=== PATIENT | male | born 1965 | race Caucasian/White ===

== ENCOUNTER 2017-04-03 19:19 | Inpatient (IN) | payer OTHER ==
--- NOTE | ~2017-04-03 | DS ---
Discharge Summary [facility] [address] [place]. [address] NAME: SINDHU SEARS : 65 STATUS : DIS IN PAT#: [id number] AGE: 52 ADM/REG DATE : 04/03/17 MR#: [id number] REPORT SERV DATE: 04/16/17 DICTATED BY: DAIN BRAGG DATE: 04/16/17 REPORT STATUS : Draft TRANSCRIBED BY: SONG DATE: 04/16/17 ADMISSION DATE: 04/03/2017 DISCHARGE DATE: 04/07/2017 DISCHARGE DIAGNOSES: 1. Acute respiratory, resolved. 2. Chronic obstructive pulmonary disease, acute exacerbation. 3. Hypertension. IMAGING: Chest x-ray, 04/03/2017: Impression, appropriate positioning of ET tube and enteric tube. COURSE IN THE HOSPITAL STAY: Please refer to history and physical dictated by Dr. Lerner on 04/03/2017 for complete admission details. This patient is a 52-year-old gentleman who presented to [facility] Emergency Room from [facility], who was found in hypercapnic. The patient does present with a history of COPD. At the time of admission, no family member was present. The patient was a transfer from [facility] through the emergency room at [facility], proceeded on to ICU. The patient was placed on a first set drip as well as Solu-Medrol, Rocephin, and DuoNebs. Over the next 48 hours, the patient did stabilize, was able to transfer to floor on room air. The patient was discharged home with Levaquin and prednisone. He would follow up with his primary care. Please review the ICU notes for details during admission to ICU. textile conversion manager was involved in the patient's discharge. Medications were provided for the patient. The patient did state that he had a nebulizer at home. Prescriptions were provided. The patient was to follow up with his primary care in five to seven days, which he stated understanding. The patient was discharged home in hemodynamically stable condition. This discharge took less than 30 minutes. DICTATED BY: Dain Bragg NP [facility] Dain Bragg NP / [id number] CC: Discharge Summary [place] [address] [place] [address] NAME: SINDHU SEARS : 65 STATUS : DIS IN PAT#: [id number] AGE: 52 ADM/REG DATE : 04/03/17 MR#: [id number] REPORT SERV DATE: 04/16/17 DICTATED BY: DAIN BRAGG DATE: 04/16/17 REPORT STATUS : Draft TRANSCRIBED BY: MODL DATE: 04/16/17 MD Ester Mcdonald MD
--- NOTE | ~2017-04-03 | HP ---
History And Physical [place] [id number] [facility] [place] [place]. [address] NAME: SINDHU AYALA : 65 STATUS : ADM IN [facility]#: [id number] AGE: 52 ADM/REG DATE : 04/03/17 MR#: [id number] REPORT SERV DATE: 04/04/17 DICTATED BY: JELENA LERNER DATE: 04/03/17 REPORT STATUS : Draft TRANSCRIBED BY: MODL DATE: 04/03/17 DATE OF ADMISSION: 04/03/2017 REASON FOR ADMISSION: COPD exacerbation with acute hypercapnic respiratory failure. CHIEF COMPLAINT: Unable to obtain due to the patient's current medical status. ADMISSION DIAGNOSIS: COPD exacerbation with acute hypercapnic respiratory failure. HISTORY OF PRESENT ILLNESS: Mr. Ayala is a 52-year-old gentleman who presented to [facility] from [facility] for being found hypercapnic. Upon discussion with the outside hospital ER, the patient's initial pH on blood gas was 7.0+. He was hypercapnic and continued to get worse and shortness of breath clinically and required intubation. There is no family currently at the bedside nor has the outside hospital been able to get a hold of family. Currently, the patient's employer is trying get a hold of family. Per nursing record, the patient was seen last week for an acute exacerbation of COPD, but left from the outside hospital against medical advice and then re-presented in this state that he currently is in. The patient transferred from [facility] and was intubated, however, he had no sedation, but was paralyzed with rocuronium. Upon discussion with the staff at [facility] prior to discharge, there was no Precedex available and sedation modality was discussed to give this patient a fentanyl drip with as-needed Versed. However, I see these orders were written, but I do not see that the patient came in on any of these drips. Midazolam was ordered at 1711 hours, fentanyl was also ordered at 1655 hours, but so was rocuronium. It seems that the patient got several doses of midazolam from what I could tell along with Solu Medrol and Rocephin along with DuoNebs. He was then sent for transfer. At the outside hospital, chest x-ray showed evidence of COPD, but no pneumonia. Initial vital signs showed that the patient's blood pressure was 120/80, heart rate of 93, respiratory rate 32, with an oxygen saturation of 88% on 15 L. Otherwise, no further history. PAST MEDICAL HISTORY: COPD. HOME MEDICATION: Currently, I do not have a home medication list, but according to the outside hospital, the patient is on atenolol 100 mg twice daily, benazepril 20 mg once daily, albuterol. ALLERGIES: ACCORDING TO THE OUTSIDE CHART, NO KNOWN DRUG ALLERGIES. SOCIAL HISTORY: Per record, the patient is employed, unclear of his family situation. The patient does smoke, drinks on the weekends. FAMILY HISTORY: According to outside records, the patient has a paternal history of COPD. REVIEW OF SYSTEMS: Unable to obtain due to the patient's current medical status. PHYSICAL EXAMINATION: History And Physical [address] [address] NAME: SINDHU AYALA : 65 STATUS : ADM IN [facility]#: [id number] AGE: 52 ADM/REG DATE : 04/03/17 MR#: [id number] REPORT SERV DATE: 04/04/17 DICTATED BY: JELENA LERNER DATE: 04/03/17 REPORT STATUS : Draft TRANSCRIBED BY: SONG DATE: 04/03/17 VITAL SIGNS: Current vital signs on admission to [facility] shows a heart rate of around 93, oxygen saturation 100%, respiratory rate of 50 with a blood pressure of 220. After receiving sedation, the patient's heart rate and blood pressure along with respiratory has improved. GENERAL: The patient is intubated, is having fasciculations, most likely from the rocuronium. HEENT: PERRLA. NECK: Supple. No JVD. No cervical lymphadenopathy. PULMONARY: No wheezing, mechanical breath sounds. No crackles. CARDIAC: Regular rate. No murmurs. ABDOMEN: Soft, nontender, nondistended. EXTREMITIES: No cyanosis. Peripheral pulses noted. No lower extremity edema. LABORATORY EXAMINATION: The patient does have an elevated white blood cell count at 16. X-ray: Outside hospital x-ray shows findings of COPD. ASSESSMENT AND PLAN: Mr. Ayala is a 52-year-old gentleman with a past medical history noted above, who presents with acute hypoxic and hypercapnic respiratory failure in the setting of chronic obstructive pulmonary disease exacerbation. 1. Acute hypoxic and hypercapnic respiratory failure: At this moment in time, we will continue mechanical ventilation, adjust ventilator strategy and start the patient on Solu-Medrol, DuoNebs, Brovana, and Pulmicort. Continue Rocephin and azithromycin. Obtain sputum culture and wean as tolerated. We will hopefully have family contact us soon for further history. Other consideration is acute pulmonary embolism. If the patient fails to improve from my hypoxia standpoint, may need to have further imaging into this possibility. 2. Chronic obstructive pulmonary disease: The patient is on albuterol at home, it may be worthwhile having this patient obtain a pulmonary function test after this hospitalization for baseline. Furthermore, to have this level of hypercapnia at such a young age, shall have follow up with alpha-1 antitrypsin. We will be evaluating the chest x-ray looking for emphysema. The patient may benefit from a Pulmonary consultation after this clinic visit. 3. Hypertension: We will continue to monitor, at this moment in time, we will hold off on the patient's home beta robbin and LULU inhibitor. 4. Diet: At this moment in time, we will start tube feeds. 5. Prophylaxis: We will give gastrointestinal and deep venous thrombosis prophylaxis. 6. Critical care time: 45 minutes. This is excluding any procedures. HFQ/MODL Jelena Lerner MD / [id number] History And Physical [address] [address] NAME: ORIONSINDHU D : 65 STATUS : ADM IN [facility]#: [id number] AGE: 52 ADM/REG DATE : 04/03/17 MR#: [id number] REPORT SERV DATE: 04/04/17 DICTATED BY: JELENA LERNER DATE: 04/03/17 REPORT STATUS : Draft TRANSCRIBED BY: MODL DATE: 04/03/17 CC: MD ABIDA Mcdonald [facility]
[2017-04-03 21:10] LABS: ALLENS TEST Pos; BE (BASE EXCESS) -4.6 MEQ/L (0 +/- 2.5); CARBOXYHEMOGLOBIN 0.3 % (0-3); HCO3 (ACTUAL BICARBONATE) 24.2 MEQ/L (23-27); HEMOBLOGIN CONTENT 17.1 G/DL (14-18); INSTRUMENT SERIAL # 35151; METHEMOGLOBIN 0.7 % (0-3); MODE CMV; O2 CONTENT 24.2 VOL% (18-24); OPERATOR ID 13861; PCO2 (CO2 TENSION) 60 MMHG (35-45); PO2 (O2 TENSION) 251 MMHG (79-93); SAMPLE Arterial; TIDAL VOLUME 600 ML; pH 7.23 (7.37-7.43)
[2017-04-03 22:44] LABS: BASOPHILS 0.1 %; BASOPHILS ABSOLUTE 0.01 10/3/uL (0.0-0.16); EOSINOPHILS 0.1 %; EOSINOPHILS ABSOLUTE 0.01 10/3/uL (0.0-0.53); HEMATOCRIT 44.1 % (40.0-51.0); HEMOGLOBIN 15.3 g/dL (13.6-17.8); IMMATURE GRANULOCYTES 0.2 %; IMMATURE GRANULOCYTES ABSOLUTE 0.02 10/3/uL (0.0-0.11); LYMPHOCYTES 2.8 %; LYMPHOCYTES ABSOLUTE 0.27 10/3/uL (0.67-4.30); MEAN CORPUS HGB CONC 34.7 g/dL (32.0-36.0); MEAN CORPUSCULAR HEMOGLOB 35.2 pg (26.0-34.0); MEAN CORPUSCULAR VOLUME 101.4 fL (80-100); MEAN PLATELET VOLUME 10.5 fL (9.2-13.0); MONOCYTES 0.7 %; MONOCYTES ABSOLUTE 0.07 10/3/uL (0.21-1.20); NEUTROPHILS 96.1 %; PLATELET COUNT 179 10/3/uL (150-400); RBC DISTRIBUTION WIDTH 12.8 % (12.0-16.0); RED CELL COUNT 4.35 10/6/uL (4.7-6.1); WHITE BLOOD CELLS 9.5 10/3/uL (4.5-10.5)
[2017-04-03 22:47] LABS: MANUAL DIFF NO %
[2017-04-03 23:04] LABS: ALKALINE PHOSPHATASE 62 U/L (45-117); BUN (BLOOD UREA NITROGEN) 15 MG/DL (6-23); CHLORIDE, SERUM 108 MMOL/L (96-112); CK-MB 5.4 NG/ML; CO2 (CARBON DIOXIDE) 24 MMOL/L (24-34); CPK 97 U/L (0-200); CREATININE 1.24 MG/DL (0.70-1.30); GFR AFRICAN AMERICAN 77 ML/MIN (>=60); GFR NON AFRICAN AMERICAN 66 ML/MIN (>=60); GLOBULIN 2.9 G/DL (2.5-4.1); GLUCOSE, SERUM 130 MG/DL (60-99); PHOSPHORUS, SERUM 4.5 MG/DL (2.5-4.5); POTASSIUM, SERUM 4.5 MMOL/L (3.5-5.3); SGOT(AST) 21 U/L (5-40); SGPT(ALT) 28 U/L (5-65); SODIUM, SERUM 140 MMOL/L (135-148); TOTAL BILIRUBIN 1.9 MG/DL (0-1.2); TOTAL PROTEIN 5.9 G/DL (6.0-8.5)
[2017-04-03 23:05] LABS: CKMB INDEX (NOT ORD) 5.6
[2017-04-03 23:07] LABS: TROPONIN I 0.18 NG/ML (<0.05)
[2017-04-03 23:40] LABS: AMPHETAMINES (NOT ORD) NEG (NEG); BARBITURATES (NOT ORDERED NEG (NEG); BENZODIAZEPINES (NOT ORD) POS (NEG); CANNABINOIDS (THC) NEG (NEG); COCAINE (NOT ORDERED) NEG (NEG); OPIATES NEG (NEG); PHENCYCLIDINE(PCP) NEG (NEG); TRICYCLICS NEG (NEG)
[2017-04-04 00:02] LABS: ALLENS TEST Pos; BE (BASE EXCESS) -5.2 MEQ/L (0 +/- 2.5); CARBOXYHEMOGLOBIN 0.6 % (0-3); HCO3 (ACTUAL BICARBONATE) 18.9 MEQ/L (23-27); HEMOBLOGIN CONTENT 16.4 G/DL (14-18); INSTRUMENT SERIAL # 35151; METHEMOGLOBIN 0.7 % (0-3); MODE CMV; O2 CONTENT 22.9 VOL% (18-24); OPERATOR ID 13861; PCO2 (CO2 TENSION) 33 MMHG (35-45); PO2 (O2 TENSION) 177 MMHG (79-93); SAMPLE Arterial; TIDAL VOLUME 600 ML; pH 7.37 (7.37-7.43)
[2017-04-04 05:49] LABS: BASOPHILS 0.1 %; BASOPHILS ABSOLUTE 0.01 10/3/uL (0.0-0.16); EOSINOPHILS 0.1 %; EOSINOPHILS ABSOLUTE 0.01 10/3/uL (0.0-0.53); HEMATOCRIT 46.8 % (40.0-51.0); IMMATURE GRANULOCYTES 0.1 %; IMMATURE GRANULOCYTES ABSOLUTE 0.01 10/3/uL (0.0-0.11); LYMPHOCYTES 7.9 %; LYMPHOCYTES ABSOLUTE 0.64 10/3/uL (0.67-4.30); MEAN CORPUS HGB CONC 34.2 g/dL (32.0-36.0); MEAN CORPUSCULAR HEMOGLOB 34.9 pg (26.0-34.0); MEAN PLATELET VOLUME 10.6 fL (9.2-13.0); MONOCYTES 2.2 %; MONOCYTES ABSOLUTE 0.18 10/3/uL (0.21-1.20); NEUTROPHILS 89.6 %; NEUTROPHILS ABSOLUTE 7.28 10/3/uL (2.02-8.40); PLATELET COUNT 173 10/3/uL (150-400); RBC DISTRIBUTION WIDTH 12.8 % (12.0-16.0); RED CELL COUNT 4.59 10/6/uL (4.7-6.1); WHITE BLOOD CELLS 8.1 10/3/uL (4.5-10.5)
[2017-04-04 05:52] LABS: MANUAL DIFF NO %
[2017-04-04 06:01] LABS: BUN (BLOOD UREA NITROGEN) 16 MG/DL (6-23); CALCIUM, SERUM 8.2 MG/DL (8.5-10.4); CHLORIDE, SERUM 109 MMOL/L (96-112); CO2 (CARBON DIOXIDE) 21 MMOL/L (24-34); CREATININE 1.19 MG/DL (0.70-1.30); GFR AFRICAN AMERICAN 81 ML/MIN (>=60); GFR NON AFRICAN AMERICAN 70 ML/MIN (>=60); GLUCOSE, SERUM 116 MG/DL (60-99); POTASSIUM, SERUM 4.4 MMOL/L (3.5-5.3); SODIUM, SERUM 140 MMOL/L (135-148)
[2017-04-04 06:49] LABS: TROPONIN I 0.22 NG/ML (<0.05)
[2017-04-04 08:48] LABS: ALLENS TEST Pos; BE (BASE EXCESS) -3.7 MEQ/L (0 +/- 2.5); CARBOXYHEMOGLOBIN 0.7 % (0-3); INSTRUMENT SERIAL # 35151; METHEMOGLOBIN 0.6 % (0-3); O2 CONTENT 21.7 VOL% (18-24); PCO2 (CO2 TENSION) 37 MMHG (35-45); PO2 (O2 TENSION) 95 MMHG (79-93); SAMPLE Arterial; pH 7.37 (7.37-7.43)
[2017-04-04] MEDS ORDERED: ATEN50 PO (11:16)
[2017-04-04] MEDS ORDERED: LOTE40 PO (11:16)
[2017-04-04] MEDS ORDERED: PROVHFA INH (11:18)
[2017-04-04] MEDS ORDERED: ALBUTEROL0.083 % INH (11:18)
[2017-04-04] MEDS ORDERED: NORV5 PO (11:23)
[2017-04-05 03:38] LABS: BASOPHILS 0 %; EOSINOPHILS 0 %; HEMOGLOBIN 15.2 g/dL (13.6-17.8); IMMATURE GRANULOCYTES 0.3 %; IMMATURE GRANULOCYTES ABSOLUTE 0.05 10/3/uL (0.0-0.11); LYMPHOCYTES 3.7 %; MEAN CORPUS HGB CONC 34.5 g/dL (32.0-36.0); MEAN CORPUSCULAR HEMOGLOB 34.9 pg (26.0-34.0); MEAN CORPUSCULAR VOLUME 101.1 fL (80-100); MEAN PLATELET VOLUME 10.2 fL (9.2-13.0); MONOCYTES 3.3 %; MONOCYTES ABSOLUTE 0.55 10/3/uL (0.21-1.20); NEUTROPHILS 92.7 %; NEUTROPHILS ABSOLUTE 15.22 10/3/uL (2.02-8.40); PLATELET COUNT 181 10/3/uL (150-400); RBC DISTRIBUTION WIDTH 12.8 % (12.0-16.0); RED CELL COUNT 4.35 10/6/uL (4.7-6.1)
[2017-04-05 03:39] LABS: MANUAL DIFF NO %; WHITE BLOOD CELLS 16.4 10/3/uL (4.5-10.5)
[2017-04-05 04:02] LABS: BUN (BLOOD UREA NITROGEN) 19 MG/DL (6-23); CHLORIDE, SERUM 104 MMOL/L (96-112); CO2 (CARBON DIOXIDE) 23 MMOL/L (24-34); GFR AFRICAN AMERICAN 89 ML/MIN (>=60); GFR NON AFRICAN AMERICAN 77 ML/MIN (>=60); GLUCOSE, SERUM 134 MG/DL (60-99); SODIUM, SERUM 135 MMOL/L (135-148)
[2017-04-05 04:04] LABS: CALCIUM, SERUM 9.2 MG/DL (8.5-10.4); PHOSPHORUS, SERUM 1.7 MG/DL (2.5-4.5); POTASSIUM, SERUM 3.4 MMOL/L (3.5-5.3)
[2017-04-05 14:04] LABS: POTASSIUM, SERUM 3.6 MMOL/L (3.5-5.3)
[2017-04-05 14:05] LABS: TROPONIN I 0.05 NG/ML (<0.05)
[2017-04-05 14:11] LABS: PHOSPHORUS, SERUM 2.7 MG/DL (2.5-4.5)
[2017-04-06 05:48] LABS: BASOPHILS 0 %; EOSINOPHILS 0 %; HEMATOCRIT 43.2 % (40.0-51.0); IMMATURE GRANULOCYTES 0.2 %; IMMATURE GRANULOCYTES ABSOLUTE 0.02 10/3/uL (0.0-0.11); LYMPHOCYTES 4.8 %; LYMPHOCYTES ABSOLUTE 0.51 10/3/uL (0.67-4.30); MEAN CORPUS HGB CONC 34.7 g/dL (32.0-36.0); MEAN CORPUSCULAR VOLUME 100.9 fL (80-100); MEAN PLATELET VOLUME 10.6 fL (9.2-13.0); MONOCYTES 4.6 %; MONOCYTES ABSOLUTE 0.49 10/3/uL (0.21-1.20); NEUTROPHILS 90.4 %; NEUTROPHILS ABSOLUTE 9.63 10/3/uL (2.02-8.40); PLATELET COUNT 168 10/3/uL (150-400); RBC DISTRIBUTION WIDTH 12.9 % (12.0-16.0); RED CELL COUNT 4.28 10/6/uL (4.7-6.1); WHITE BLOOD CELLS 10.7 10/3/uL (4.5-10.5)
[2017-04-06 05:52] LABS: MANUAL DIFF NO %
[2017-04-06 06:01] LABS: BUN (BLOOD UREA NITROGEN) 19 MG/DL (6-23); CALCIUM, SERUM 9.1 MG/DL (8.5-10.4); CHLORIDE, SERUM 104 MMOL/L (96-112); CO2 (CARBON DIOXIDE) 28 MMOL/L (24-34); CREATININE 0.88 MG/DL (0.70-1.30); GFR AFRICAN AMERICAN 114 ML/MIN (>=60); GFR NON AFRICAN AMERICAN 99 ML/MIN (>=60); GLUCOSE, SERUM 127 MG/DL (60-99); PHOSPHORUS, SERUM 2.6 MG/DL (2.5-4.5); POTASSIUM, SERUM 3.7 MMOL/L (3.5-5.3); SODIUM, SERUM 138 MMOL/L (135-148)
[2017-04-07 05:26] LABS: BASOPHILS 0 %; EOSINOPHILS 0 %; HEMATOCRIT 43.4 % (40.0-51.0); HEMOGLOBIN 14.9 g/dL (13.6-17.8); IMMATURE GRANULOCYTES 0.4 %; IMMATURE GRANULOCYTES ABSOLUTE 0.04 10/3/uL (0.0-0.11); LYMPHOCYTES 7.7 %; LYMPHOCYTES ABSOLUTE 0.85 10/3/uL (0.67-4.30); MEAN CORPUS HGB CONC 34.3 g/dL (32.0-36.0); MEAN CORPUSCULAR HEMOGLOB 34.9 pg (26.0-34.0); MEAN CORPUSCULAR VOLUME 101.6 fL (80-100); MEAN PLATELET VOLUME 10.5 fL (9.2-13.0); MONOCYTES 9.9 %; NEUTROPHILS ABSOLUTE 9.07 10/3/uL (2.02-8.40); PLATELET COUNT 170 10/3/uL (150-400); RBC DISTRIBUTION WIDTH 12.7 % (12.0-16.0); RED CELL COUNT 4.27 10/6/uL (4.7-6.1); WHITE BLOOD CELLS 11.1 10/3/uL (4.5-10.5)
[2017-04-07 05:29] LABS: MANUAL DIFF NO %
[2017-04-07] MEDS ORDERED: MULTI-VIT HP PO (12:49)
[2017-04-07] MEDS ORDERED: P20 PO (12:50)
[2017-04-07] MEDS ORDERED: ZITHROMAX500 MG PO (12:50)
[2017-04-07] MEDS ORDERED: PULMICORT180 MCG INH (12:50)
[2017-04-07] MEDS ORDERED: DUONEB INH (12:51)
[2017-04-07] MEDS ORDERED: BROVANA15 MCG INH (12:51)
== END 2017-04-07 15:28 | disposition home or self-care (01) | DRG 208 ==
LOC: CCU 19:19 → 4EA 04-05 15:19
PROVIDERS: Internal Medicine; Internal Medicine Critical Care Medicine; Nurse Practitioner Adult Health
PROC: 5A1945Z Respiratory Ventilation, 24-96 Consecutive Hours (ICD-10-PCS; principal; 2017-04-03)
PROC: 0BH17EZ Insertion of Endotracheal Airway into Trachea, Via Natural or Artificial Opening (ICD-10-PCS; 2017-04-03)
DX: J96.01 Acute respiratory failure with hypoxia (principal); J44.1 Chronic obstructive pulmonary disease with (acute) exacerbation; I10 Essential (primary) hypertension; J96.02 Acute respiratory failure with hypercapnia
CPT/HCPCS: 31720; 36600; 71010; 80048; 80053; 80305; 82550; 82553; 82805; 83735; 84100; 84132; 84484; 85025; 87070; 87205; 93005; 94002; 94003; 94640; 94660; 94770; A9270-GY; C9113; J0360; J0456; J2250; J2920; J3010